=== PATIENT | female | born 1985 | race Caucasian/White ===

== ENCOUNTER → 2021-04-04 03:32 | Outpatient (CLI) | payer BC, SELFPAY ==
[2021-04-04 20:46] LABS: SARS-CoV-2 RNA PCR Positive
== END ==
PROVIDERS: PCP Physician Assistant; Visit Provider Physician Assistant
DX: U07.1 COVID-19 (principal)
CPT/HCPCS: C9803; U0003; U0005

== ENCOUNTER → 2021-06-26 13:18 | Outpatient (CLI) | payer BC, SELFPAY ==
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
== END ==
PROVIDERS: PCP Physician Assistant; Visit Provider Physician Assistant
DX: M16.0 Bilateral primary osteoarthritis of hip (principal); R22.41 Localized swelling, mass and lump, right lower limb
CPT/HCPCS: 73502

== ENCOUNTER 2021-06-28 08:41 | Emergency (ER) | payer OTHER, BC, SELFPAY ==
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
--- NOTE | ~2021-06-28 | XR_ITS ---
EXAMINATION: XR chest 2V DATE: 06/28/2021 09:52 INDICATION: Left-sided chest pain TECHNIQUE: Frontal and lateral views of the chest are obtained COMPARISON: None available FINDINGS: The lungs are free of acute opacities. There is no pleural effusion or pneumothorax. The ca rdiomediastinal silhouette is normal. The visualized bones and soft tissues are unremarkable. IMPRESSION: 1. No acute cardiopulmonary abnormality. Reviewed, dictated and finalized at location A. OPSYCHIATRIST
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
[2021-06-28 08:45] VITALS: BP 145/81; PULSE 78; RESP 18; TEMP 36.8; O2SAT 100
[2021-06-28 08:51] VITALS: BP 145/81; PULSE 78; RESP 18; TEMP 36.8; O2SAT 100
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
[2021-06-28 11:18] VITALS: BP 133/91; PULSE 77; RESP 18; O2SAT 100
== END 2021-06-28 11:19 | disposition home or self-care (01) ==
PROVIDERS: Emergency Provider Emergency Medicine; PCP Physician Assistant
DX: S16.1XXA Strain of muscle, fascia and tendon at neck level, initial encounter (principal); S20.219A Contusion of unspecified front wall of thorax, initial encounter; M47.812 Spondylosis without myelopathy or radiculopathy, cervical region; M47.815 Spondylosis without myelopathy or radiculopathy, thoracolumbar region; V49.40XA Driver injured in collision with unspecified motor vehicles in traffic accident, initial encounter
CPT/HCPCS: 71046; 72125; 72128; 72131; 81025; 99284; L0140

== ENCOUNTER → 2021-06-28 11:57 | Outpatient (CLI) | payer BC, SELFPAY ==
--- NOTE | ~2021-06-28 | US_ITS ---
EXAMINATION: US soft tissue LE RT DATE: 06/28/2021 12:19 INDICATION: Localized swelling, mass and lump at the upper lateral right thigh TECHNIQUE: Multiple grayscale and Doppler ultrasound images of the region of concern at the upper lat eral right thigh were obtained. COMPARISON: None FINDINGS IMPRESSION: Subtle 3.1 x 2.5 x 1.3 cm subcutaneous mass at the region of concern which is isoechoic and with iden tical echotexture to the surrounding subcutaneous fat most consistent with a lipoma. No other abnorma l masses or fluid collections identified. Reviewed, dictated and finalized at location B. PMENT APPLICATION SPECIALIST
== END ==
PROVIDERS: PCP Physician Assistant; Visit Provider Physician Assistant
DX: R22.41 Localized swelling, mass and lump, right lower limb (principal)
CPT/HCPCS: 76882

== ENCOUNTER 2023-05-09 09:43 | Outpatient (CLI) | payer BC, SELFPAY | END 2023-05-09 09:44 | disposition home or self-care (01) | LOC: ANHLAB 09:46 | PROVIDERS: PCP Physician Assistant; Visit Provider Physician Assistant | DX: Z20.818 Contact with and (suspected) exposure to other bacterial communicable diseases (principal) | CPT/HCPCS: 87070 ==

== ENCOUNTER 2025-06-03 13:55 | Outpatient (CLI) | payer BC, SELFPAY ==
--- NOTE | ~2025-06-03 | MM_ITS ---
EXAMINATION: MM screening sendy BI w jodi HISTORY: Screening TECHNIQUE: Craniocaudal and mediolateral oblique 3-D tomosynthesis images were obtained and synthetic 2-D images were generated. CAD analysis was submitted and interpreted. COMPARISON: No prior mammogram is available for comparison at this institution. BREAST PARENCHYMAL COMPOSITION: Not dense: There are scattered areas of fibroglandular density. FINDINGS: There is no evidence of suspicious mass, calcification, or architectural distortion to suggest malignancy in either breast. There has been no suspicious interval change. IMPRESSION: 1. No mammographic evidence of malignancy. 2. Recommend routine screening mammography in one year. BI-RADS Category 1: Negative Reviewed, dictated and finalized at location B. IAL EVENTS PLANNER
== END 2025-06-03 13:56 | disposition home or self-care (01) ==
PROVIDERS: PCP Obstetrics & Gynecology; Visit Provider Obstetrics & Gynecology
DX: Z12.31 Encounter for screening mammogram for malignant neoplasm of breast (principal)
CPT/HCPCS: 77063; 77067